=== PATIENT | female | born 1945 | race Caucasian/White ===

== ENCOUNTER 2019-03-02 09:37 | Emergency (ER) | payer MEDICARE ==
[2019-03-02] MEDS ORDERED: CHERRY SYRUP 10 ML UDC PO ONE (10:56)
[2019-03-02] MEDS ORDERED: DEXAMETHASONE 10 MG/ML VIAL PO STA (10:56)
--- NOTE | 2019-03-02 10:57 | ED Physician Documentation ---
PD HPI URI - Stated complaint Stated Complaint: SORE THROAT/UNABLE TO SWOLLOW - Chief complaint Chief Complaint: Heent - History obtained from History obtained from: Patient, Family - History of Present Illness Timing - onset: How many days ago (3) Timing duration: Days (3) Timing details: Gradual onset, Still present Associated symptoms: Nasal congestion, Rhinorrhea, Sore throat, Dry cough, Dyspnea Contributing factors: Sick contact ( sick with similar has recovered) Improves by: Rest Worsened by: Activity Similar symptoms before: Has not had sx before Recently seen: Not recently seen - Additional information Additional information: Previously well 73-year-old female has developed a cough and congestion with a severe sore throat. Her throat is so sore that she is not able to swallow well and she has lost her voice. Review of Systems Constitutional: reports: Chills, Myalgias, Fatigue, Sweats. denies: Fever Eyes: denies: Decreased vision Ears: denies: Ear pain Nose: reports: Rhinorrhea / runny nose, Congestion Throat: reports: Sore throat Cardiac: denies: Chest pain / pressure, Palpitations Respiratory: reports: Dyspnea, Cough GI: denies: Nausea, Vomiting PD PAST MEDICAL HISTORY - Past Medical History Past Medical History: No - Past Surgical History Past Surgical History: No - Present Medications Home Medications: Ambulatory Orders Medication Instructions Recorded Confirmed Azithromycin [Zithromax] 250 mg PO DAILY #6 tablet 03/02/19 - Allergies Allergies/Adverse Reactions: Allergies Allergy/AdvReac Type Severity Reaction Status Date / Time No Known Drug Allergies Allergy Verified 03/02/19 09:41 - Social History Does the pt smoke?: No Smoking Status: Never smoker PD ED PE NORMAL - Vitals Vital signs reviewed: Yes (tachy and hypertensive ) - General General: Alert and oriented X 3, No acute distress, Well developed/nourished - HEENT HEENT: Atraumatic, PERRL, EOMI, Ears normal, Other (pharynx is with inflamation and minimal exudate. 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, No motor deficit, No sensory deficit, Normal speech Eye Opening: Spontaneous Motor: Obeys Commands Verbal: Oriented GCS Score: 15 - Psych Psych: Normal mood, Normal affect Results - Vitals Vitals: Vital Signs - 24 hr 03/02/19 09:38 Temperature 37.0 C Heart Rate 110 H Respiratory 18 Rate Blood Pressure 180/109 H O2 Saturation 95 Oxygen O2 Source Room air - Labs Labs: Laboratory Tests 03/02/19 09:45 Group A Strep Rapid Negative PD MEDICAL DECISION MAKING - ED course Complexity details: considered differential, d/w patient, d/w family ED course: 73-year-old female with a lot of swelling in the back of her throat has some difficulty swallowing and she has developed cough. She is administered dexamethasone 10 mg orally a rapid strep is negative and we will place her on some azithromycin. Departure - Departure Disposition: 01 Home, Self Care Clinical Impression: Tonsillopharyngitis Condition: Stable Instructions: ED Tonsillitis Follow-Up: Your, doctor [Other] Prescriptions: Azithromycin [Zithromax] 250 mg PO DAILY #6 tablet
[2019-03-02 11:12] VITALS: BP 166/95
== END 2019-03-02 11:11 | disposition home or self-care (01) ==
LOC: ED 09:37
DX: J02.9 Acute pharyngitis, unspecified (principal)
CPT/HCPCS: 87070; 87430; 99283; 99284; A9270

== ENCOUNTER 2020-04-12 13:48 | Outpatient (CLI) | payer MEDICARE ==
[2020-04-12] MEDS ORDERED: BUPIVACAINE 0.5% PF 10 ML VIAL ONE (14:08)
[2020-04-12] MEDS ORDERED: BUPIVACAINE 0.5% PF 10 ML VIAL SUBQ STA (15:43)
--- NOTE | 2020-04-17 06:40 | Mammography Report ---
UNILATERAL LEFT DIGITAL DIAGNOSTIC MAMMOGRAM 3D/2D: 04/12/2020 CLINICAL: Post left breast ultrasound biopsy, clip placement imaging. Comparison is made to exam dated: 03/28/2020 mammogram - [facility]. The tissue of left breast is heterogeneously dense. This may lower the sensitivity of mammography. There is a marker clip in the appropriate position in the left breast at 9 o'clock location. IMPRESSION: POST PROCEDURE MAMMOGRAM FOR MARKER PLACEMENT There was a successful marker clip placement in the left breast 9 oclock position. This exam was interpreted at Station ID: [id number]. NOTE: For mammograms, a report in lay terms will be sent to the patient. Approximately 15% of breast malignancies will not be visualized mammographically. In the management of a palpable breast mass, a negative mammogram must not discourage biopsy of a clinically suspicious lesion. Electronically Signed By: Connie Borges M.D. [facility]/:04/16/2020 17:36:29 ACR BI-RADS Category Post-procedure mammogram for marker placement PARENCHYMAL PATTERN: (D) - The breast(s) demonstrate(s) heterogeneously dense fibroglandular shaina clemons. BI-RADS CATEGORY: () - Unspecified - other recall n/a LATERALITY: (B)
--- NOTE | 2020-04-19 07:34 | Ultrasound Report ---
ULTRASOUND GUIDED BIOPSY LEFT BREAST WITH MARKING DEVICE INSERTED AND POST MAMMOGRAPHIC IMAGIN04/12 CLINICAL: Left breast mass. PATIENT CONSENT: Risks (minor bleeding, infection, vasovagal reaction and repeat procedure), benefits and alternatives were explained to the patient and written informed consent was obtained. Correlation is made to exams dated: 03/28/2020 ultrasound and 03/28/2020 mammogram - [facility]. An ultrasound guided biopsy using real-time ultrasound was performed for the palpable indistinct irre gular shaped solid mass located in the left breast at 9 o'clock posterior depth. This was described on the previous mammography and ultrasound reports. The skin was prepped in the usual manner. Topic al and local anesthetic was administered to the access site. A skin tiffany was made in the breast. Th e abnormality was approached from the lateral aspect. A biopsy needle was placed adjacent to the abn ormality through an introducer device under ultrasound guidance. Once the needle was documented to b e in the correct location, a specimen was obtained using an Achieve automated firing device. A titan ium clip was inserted into the biopsy cavity. A sterile dressing was applied to the access site. Po st procedure mammographic imaging demonstrates the location device at the targeted area. The specime n was sent to the laboratory for pathological analysis. IMPRESSION: ULTRASOUND GUIDED BIOPSY MALIGNANT Ultrasound guided biopsy of the solid mass in the left breast at 9 o'clock posterior depth was succes sful. Pathology indicates malignant invasive lobular carcinoma ([place]). Pathology results are concorda nt with mammography and ultrasound findings. Surgical and oncologic consultation are recommended. An ultrasound guided biopsy is also recommended of the left axillary lymph node with suspicious eccen tric cortical thickening. Breast MRI is also recommended to determine the extent of disease given the ill defined hypoechoic so ft tissue also demonstrated on ultrasound. This exam was interpreted at Station ID: [id number]. Connie Cevallos M.D. [facility]/:04/18/2020 08:10:29 BI-RADS CATEGORY: () - Unspecified - other recall n/a LATERALITY: (B)
== END 2020-04-12 13:49 | disposition home or self-care (01) ==
LOC: DI 13:48
PROVIDERS: ATTEND Nurse Practitioner Family
DX: C50.912 Malignant neoplasm of unspecified site of left female breast (principal); Z17.0 Estrogen receptor positive status [ER+]
CPT/HCPCS: 19083

== ENCOUNTER 2020-05-08 12:40 | Outpatient (CLI) | payer MEDICARE ==
[2020-05-08] MEDS ORDERED: GADOBUTROL 10 MMOL/10 ML VIAL ONE (13:09)
[2020-05-08] MEDS ORDERED: GADOBUTROL 10 MMOL/10 ML VIAL IVP ONE (17:14)
--- NOTE | 2020-05-17 07:07 | MRI Report ---
BREAST MRI OF BOTH BREASTS: 05/08/2020 CLINICAL: Routine screening. Personal history of left breast cancer. CONTRAST: Gadolinium 8 mL intravenous TECHNIQUE: The patient was placed prone in a dedicated breast imaging coil. Precontrast axial STIR and 3D spoil ed GE without fat saturation sequences were obtained. Both before and after bolus injection of contr ast, sequential 1-minute axial 3D spoiled GE with fat saturation sequences for 3 time points, with hodges btraction images and maximum intensity projections (MIPs) generated. Delayed sagittal spoiled GE im ages with fat saturation were also obtained. Computer-aided detection, including computer algorithm analysis of MRI image data for lesion detectio n and characterization, pharmacokinetic analysis, with further physician review for interpretation, w as performed. COMPARISON: Diagnostic mammogram and ultrasound dated 03/28/2020. FINDINGS: There is minimal-mild background parenchymal enhancement. There is heterogeneous fibroglandular breast tissue in the bilateral breast. Right breast: There is a small region of minimal nonmass enhancement demonstrating clumped and ringlike morphology in the retroareolar region of the right breast at a middle depth. There is no suspicious enhancement kinetics although this may be related to enhancement being below threshold for accurate assessment. T his area of suspicious nonmass enhancement measures approximately 1.7 cm in AP dimension and 1.2 cm i n cranial coronal dimension (image 82, series 1201). It measures approximately 1.4 cm in transverse d imension (image 84, series 1104). There is also linear high signal intensity extending from this area of nonmass enhancement towards the nipple which is also intrinsically hyperintense on precontrast T1 . This is likely related to hemorrhagic components versus proteinaceous material. Otherwise, no skin or nipple abnormalities identified. No other suspicious findings identified in the right breast. No a xillary or internal mammary chain adenopathy. Left breast: In the posterior depth of the medial left breast at approximately the 9:00 position, there is a biops y-proven irregular mass measuring approximately 4.0 cm in transverse dimension and 2.6 cm in AP dimen mary (image 86, series 1104). It measures approximately 2.8 cm in cranial caudal dimension (image 114 , series 1301). There is associated architectural distortion which appears to extend and abut the lef t anterior chest wall without definite pectoralis enhancement. The size of this biopsy-proven mass is larger than the measured dimensions on comparison ultrasound. Susceptibility artifact within the mas s is compatible with the biopsy marker. There is also architectural distortion and suspicious nonmass enhancement extending anteriorly towards the left nipple. There is suspected abnormal enhancement in volving the left nipple. This area nonmass enhancement spans approximately 3.3 cm in craniocaudal dim ension (image 96, series 1301) and 5.8 cm in AP dimension (image 83, series 1104). It measures approx imately 3.0 cm in transverse dimension (image 76, series 1104). There is associated washout kinetics on delayed phase enhancement involving the mass as well as the area of nonmass enhancement. As noted on comparison ultrasound, there is suspicious left axillary adenopathy. No internal mammary chain rudy nopathy is identified. Miscellaneous: The visualized portions of the upper abdomen and chest appear unremarkable. IMPRESSION: INCOMPLETE: NEEDS ADDITIONAL IMAGING EVALUATION 1. Biopsy-proven malignant mass in the posterior depth of the left breast at approximately the 9:00 p osition measuring 4.0 x 2.6 x 2.8 cm. This is larger than the measurements on comparison sonogram. Ad ditionally, this mass with associated architectural distortion extends to and abuts the left anterior chest wall without definite evidence for pectoralis invasion/enhancement. 2. Suspicious area of nonmass enhancement with associated architectural distortion extending anterior ly from the biopsy-proven malignant mass towards the left nipple with suspected nipple involvement. 3. Suspicious left axillary adenopathy. Further evaluation with ultrasound-guided biopsy is recommend ed. 4. Suspicious nonmass enhancement in the retroareolar region of the right breast middle depth measuri ng 1.7 x 1.2 x 1.4 cm. Recommend second look ultrasound as well as additional mammographic views of t he right breast for further characterization. COMMENT: The imaging literature indicates that a negative contrast breast MRI examination has a high sensitivity and a moderate specificity for detecting and excluding invasive carcinomas to a detection threshold of 3-5 mm; nonetheless, appropriate clinical and mammographic follow-up are recommended. MRI is not sensitive for detecting DCIS (ductal carcinoma in situ) and may not detect large invasive neoplasms that show only minimal enhancement such as mucinous carcinoma. If there are suspicious moe cifications or clinically worrisome palpable masses, then biopsy should still be considered. Invasiv e neoplasms can be hidden by co-existent and benign enhancement caused by mastitis, hormone therapy e ffects, radiation therapy, , and recent biopsy or surgery. False positive examinations can occur in a number of circumstances, including breasts that have recently been subject to invasive pro cedures and those that contain atypical ductal hyperplasia, hormonally stimulated glandular tissue, f at necrosis, or radial scars. This exam was interpreted at Station ID: [id number]. Electronically Signed By: Valentin Patterson M.D. [facility]/:05/16/2020 15:10:06 ACR BI-RADS Category 0: Incomplete 3340F BI-RADS CATEGORY: (0) - 0 Mammo and [place] [id number] Immediate follow-up LATERALITY: (B)
== END 2020-05-08 12:41 | disposition home or self-care (01) ==
LOC: DI 12:40
PROVIDERS: ATTEND Nurse Practitioner Family
DX: Z53.9 Procedure and treatment not carried out, unspecified reason (principal)
CPT/HCPCS: 77049; A9585